=== PATIENT | male | born 1965 | race African-American/Black ===

== ENCOUNTER → 2019-09-11 08:57 | Outpatient (CLI) | payer BC, SELFPAY ==
[2019-09-12 12:30] LABS: Covid-19 Nasal PCR Sendout Lex Not Detected
== END ==
PROVIDERS: PCP Physician Assistant; Visit Provider Physician Assistant
DX: Z03.818 Encounter for observation for suspected exposure to other biological agents ruled out (principal)
CPT/HCPCS: U0004

== ENCOUNTER → 2020-05-19 17:58 | Outpatient (CLI) | payer BC, SELFPAY | PROVIDERS: PCP Emergency Medicine; Visit Provider Physician Assistant | DX: Z20.822 Contact with and (suspected) exposure to COVID-19 (principal) | CPT/HCPCS: U0003 ==

== ENCOUNTER 2020-11-25 12:12 | Emergency (ER) | payer BC, SELFPAY ==
[2020-11-25 12:26] VITALS: BP 120/89; PULSE 98; RESP 16; TEMP 36.8; O2SAT 99; BMI 24.9
--- NOTE | 2020-11-25 14:29 | HMH.EDUTC ---
[facility] [place] Impression: Viral syndrome, Exposure to COVID-19 virus Disposition: Home, Self-Care Condition on Discharge: Good Instructions: DI for Viral Syndrome, DI for COVID-19 (Suspected or Confirmed ), Preventing the Spread of Coronavirus Discharge Instructions Additional Instructions: Drink plenty of fluids. Take tylenol or ibuprofen for pain or fever. Take the medications as directed. Follow up with your regular doctor. GO TO THE ER FOR ANY WORSENING SYMPTOMS Quarantine until you know the results of your covid-19 test. If it is positive, the health department should call you and give you further instructions about your length of Quarantine and other thing. Prescriptions: Ondansetron [Zofran 4mg ODT] 4 mg PO Q8HP PRN #12 tab.rapdis PRN Reason: Nausea Transmission Status: Received by [facility] Benzonatate [Tessalon Perle 100mg Cap] 100 mg PO TIDP PRN #30 cap PRN Reason: Cough Transmission Status: Received by [facility] Referrals: Shravan Collier MD [Primary Care Provider] - Forms: Work/School Release Time of Disposition: 14:42 Medical Decision Making - Medical Records Medical records reviewed: No: I reviewed the patient's medical records. - Nasir Inquiry Pt receiving controlled substance: No Vital Signs: 11/25/20 12:26 11/25/20 14:32 11/25/20 14:51 Temperature 98.3 F 97.7 F 97.7 F Temperature Source Oral Oral Oral Pulse Rate 65 Pulse Rate [Left Radial] 98 H 65 Respiratory Rate 16 18 18 Blood Pressure 133/98 H Blood Pressure [Left Arm] 120/89 133/98 H Blood Pressure Mean [Left Arm] 99 109 Blood Pressure Source [Left Arm] Automatic Cuff Blood Pressure Position [Left Arm] Sitting 02 Sat by Pulse Oximetry 99 98 Oxygen Delivery Method Room Air Room Air [facility] [place] - General Stated complaint: covid test, covid symptoms Time Seen by Provider: 11/25/20 14:29 Mode of Arrival: Ambulatory Source of Information: Patient Limitations: No Limitations Description of Symptoms (Recalled from Triage Doc. by RN): pt reports body aches, chills for approx 2 days. Pt reports possible covid exposure at work - History of Present Illness Provider Complaint: He states that he has felt bad for the past 2 days. He has had body aches and joint aches. He has had chilling and nausea and diarrhea also. He denies sore throat. He denies any cough or congestion or shortness of breath. - Related Data Previous Rx's Medication Instructions Recorded amoxicillin 875 mg-potassium 1 tab PO BID 10 Days #20 tab 09/11/19 clavulanate 125 mg tablet Benzonatate [Tessalon Perle 100mg 100 mg PO TIDP PRN #30 cap 11/25/20 Cap] Ondansetron [Zofran 4mg ODT] 4 mg PO Q8HP PRN #12 tab.rapdis 11/25/20 Allergies Allergy/AdvReac Type Severity Reaction Status Date / Time No Known Allergies Allergy Unverified 09/11/19 08:29 [facility] History - Hepatitis A Screen Attestation statement:: This patient has been screened for Hepatitis A risk factors. I have reviewed the patient's past medical history: Yes Other Surgeries: Yes: Other Comment: Tumor removed - Social History Smoking Status: Current every day smoker Tobacco Type: cigarettes Alcohol Intake: current Alcohol Intake Frequency:: holidays/special occasions only Substance Use Type: denies use Occupational Status: unemployed Housing: house Household Members: family Family Hx:: Cancer ROS Obtained: Yes All systems reviewed & no additional complaints - Constitutional Constitutional: Reports system reviewed and no additional complaints, except as docu - Eyes Eyes: Reports system reviewed and no additional complaints, except as docu - ENT Ears, Nose, Mouth, and Throat: Reports system reviewed and no additional complaints, except as docu - Cardiovascular Cardiovascular: Reports system reviewed and no additional complaints, except as docu - Respiratory Respiratory: Reports system reviewed and
[2020-11-25 14:32] VITALS: BP 133/98; PULSE 65; RESP 18; TEMP 36.5; O2SAT 98; BMI 23.1
[2020-11-25 14:51] VITALS: BP 133/98; PULSE 65; RESP 18; TEMP 36.5; O2SAT 98
--- NOTE | 2020-11-25 17:39 | PC.NURSE ---
pt was notified for positive covid swab.
== END 2020-11-25 14:51 | disposition home or self-care (01) ==
PROVIDERS: Emergency Provider Nurse Practitioner Family; PCP Emergency Medicine
DX: U07.1 COVID-19 (principal); F17.210 Nicotine dependence, cigarettes, uncomplicated
CPT/HCPCS: 99202; G0463; U0003

== ENCOUNTER 2022-07-14 08:20 | Emergency (ER) | payer BC, SELFPAY ==
[2022-07-14 08:30] VITALS: BP 143/87; PULSE 133; RESP 22; TEMP 38.2; O2SAT 96; BMI 24.3
--- NOTE | 2022-07-14 08:41 | EXP.UTC ---
Discharge Plan Disposition Patient Disposition: Home, Self-Care Condition: Fair Prescriptions Prescriptions: New cefdinir 300 mg capsule 300 mg PO BID Qty: 20 0RF Referrals Follow up/Referrals: Shravan Collier MD [Primary Care Provider] - See instructions Activity Restrictions/Add. Instructions Additional Instructions/Restrictions: Make sure to Return immediately if any worsening of symptoms Take medication as prescribed *Increase fluids. Water not Soda or Tea *Start antibiotic immediately and be sure to take as ordered for the FULL length of time although you should start to see improvement over the next 48 hours *Be SURE to follow up anytime for new or worsening symptoms with your family doctor. AND in 48 hours for urine culture results with your family doctor, if you do not have a doctor then you may call back to the [facility] for urine culture results and further treatment. We do recommend that you choose and establish care with a Primary Care Physician. ?AND follow up with them ?in 10-14 days to repeat UA to ensure infection is resolved and blood no longer present *Be sure to let your PCP know that we sent urine cultures from the [facility] so they can follow up to ensure that you area the on the correct antibiotic Call your doctor office and make appointment for 48 hours (2 days from today) ?to follow up and get the results of your urine culture and further treatment Clinical Impressions Clinical Impression: Pyelonephritis Stand Alone Forms Stand Alone Forms: Work/School Release Instructions Patient Instructions: Kidney Infection, DI for Kidney Infection, Cefdinir Discharge ED Provider: Nuria Reed [facility] [place] H[place] General Stated complaint: possible bladder infection Mode of Arrival: Ambulatory Source of Information: Patient Limitations: No Limitations Time Seen by Provider: 07/14/22 08:41 Description of Symptoms (Recalled from Triage Doc. by RN): PATIENT C/O LOWER BACK PAIN, MURKY URINE, AND FEELING URGE TO URINATE FREQUENTLY SINCE MONDAY. HE REPORTS SYMPTOMS STARTED AFTER HE DRANK AN ENERGY DRINK, WHICH USUALLY CAUSES HIM TO HAVE AN INFECTION HEENT Symptoms (Recalled from RN notes): No Resp Symptoms (Recalled from RN notes): No Skin Symptoms (Recalled from RN notes): No MS Symptoms (Recalled from RN notes): No Functional Status (Recalled from RN notes): WNL History of Present Illness Provider Complaint: Patient states that he drank an energy drink earlier in the week and he typically gives him a UTI when he drinks them States that he has been having pain in his lower back that moves to the left side States that he has been having urinary frequency and urgency since Monday and today it was worse States that he wanted to come in and get something to help with the UTI Related Data Previous Rx's Medication Instructions Recorded cefdinir 300 mg capsule 300 mg PO BID #20 caps 07/14/22 Allergies Allergy/AdvReac Type Severity Reaction Status Date / Time No Known Allergies Allergy Verified 07/14/22 08:42 Worker's Comp Is this a Worker's Comp case?: No PFSH PFS Disclaimer: The information contained in this section may have been updated after the patient was seen, as this information can be updated by other users. Social History Smoking Status: Current every day smoker tobacco type: cigarettes alcohol intake: current substance use type: denies use current occupational status: unemployed Travel in the last 8 weeks: None household members: family housing: house ROS Obtained: Yes All systems reviewed & no additional complaints except as documented and Yes Systems reviewed as appropriate & no additional complaints except as documented Constitutional Constitutional: Reports system reviewed and no additional complaints, except as documented and Reports as per HPI ENT Ears, Nose, Mouth, and Throat: Reports system reviewed and no additional complaints, except as documented and Reports as per HPI C
[2022-07-14 08:43] LABS: Apearance,Urine Cloudy (Clear); Blood, Urine 3+ (Negative); Color,Urine Yellow (Yellow); Glucose,Urine (UA) Negative (Negative); Ketones,Urine TRACE (Negative); PH,Urine 5.5 (5.0-8.5); Protein,Urine 3+ (Negative); Specific Gravity, Urine >= 1.030 (1.005-1.030)
[2022-07-14 08:44] LABS: Bilirubin,Urine 1+ (Negative); UTC Leukocyte Esterase,Urine 1+ (Negative); UTC Nitrate,Urine Positive (Negative); Urobilinogen,Urine 1 EU/dl (0.2)
[2022-07-14 08:58] VITALS: BP 143/87; PULSE 133; RESP 22; TEMP 38.2; O2SAT 96
== END 2022-07-14 09:29 | disposition home or self-care (01) ==
PROVIDERS: Emergency Provider Nurse Practitioner; PCP Emergency Medicine
DX: N10 Acute pyelonephritis (principal); B96.29 Other Escherichia coli [E. coli] as the cause of diseases classified elsewhere; F17.210 Nicotine dependence, cigarettes, uncomplicated; M54.50 Low back pain, unspecified
CPT/HCPCS: 81003; 87086; 87088; 87186; 96372; 99212; 99214; 99215; G0463; J0696

== ENCOUNTER 2022-07-25 17:16 | Emergency (ER) | payer BC, SELFPAY ==
[2022-07-25 17:17] VITALS: BP 162/103; PULSE 81; RESP 17; TEMP 36.9; O2SAT 99; BMI 24.3
[2022-07-25 17:47] LABS: Microscopic, Urine URINE MICROSCOPIC (MICROSCOPIC)
[2022-07-25 17:59] LABS: Appearance,Urine SL CLOUDY (Clear); Bilirubin,Urine Negative (Negative); Blood, Urine 1+ (Negative); Color,Urine YELLOW (Yellow); Glucose,Urine (UA) Negative (Negative); Ketones,Urine Negative (Negative); Leukocyte Esterase,Urine 1+ (Negative); Nitrate,Urine POSITIVE (Negative); PH,Urine 6.5 (5.0-8.5); Protein,Urine 1+ (Negative); Urobilinogen,Urine 0.2 EU/dl (0.2)
[2022-07-25 18:26] LABS: Bacteria,Urine 3+ /lpf; Squamous Epithelial Cell,Urine Occasional #/hpf (0-5); WBC,Urine 20-50 #/hpf (0-3)
--- NOTE | 2022-07-25 18:26 | CT_ITS ---
PROCEDURE INFORMATION: Exam: CT Abdomen And Pelvis With Contrast Exam date and time: 07/25/2022 7:49 PM Age: 56 years old Clinical indication: Abdominal pain; Other: Pelvis prostrate pain; Additional info: Pelvic pain/prostatitis TECHNIQUE: Imaging protocol: Computed tomography of the abdomen and pelvis with contrast. Radiation optimization: All CT scans at this facility use at least one of these dose optimization techniques: automated exposure control; mA and/or kV adjustment per patient size (includes targeted exams where dose is matched to clinical indication); or iterative reconstruction. Contrast material: ISOVUE; Contrast volume: 75 ml; Contrast route: IV; REPORTING DATA: Count of CT and Cardiac NM exams in prior 12 months: This patient has received 0 known CTs and 0 known cardiac nuclear medicine studies in the 12 months prior to the current study. COMPARISON: ABDPELW/O CT ABD PELVIS W/O CONTRAST 01/16/2017 11:10 AM FINDINGS: Liver: Normal. No mass. Gallbladder and bile ducts: Normal. No calcified stones. No ductal dilation. Pancreas: Normal. No ductal dilation. Spleen: Normal. No splenomegaly. Adrenal glands: Normal. No mass. Kidneys and ureters: 3 mm nonobstructing calculus posterior aspect midpole left kidney. Stomach and bowel: Unremarkable. No obstruction. No mucosal thickening. Appendix: No evidence of appendicitis. Intraperitoneal space: Unremarkable. No free air. No significant fluid collection. Vasculature: Unremarkable. No abdominal aortic aneurysm. Lymph nodes: Unremarkable. No enlarged lymph nodes. Urinary bladder: Mild thickening of the bladder wall may reflect incomplete distension. Could not exclude changes of cystitis. Reproductive: Unremarkable as visualized. Bones/joints: Unremarkable. No acute fracture. Soft tissues: Slight indistinctness of the fascial planes between the prostate gland and base of the bladder. A subtle abnormality in this region could not be excluded. IMPRESSION: 1. 3 mm nonobstructing calculus posterior aspect midpole left kidney. 2. Mild thickening of the bladder wall may reflect incomplete distension. Could not exclude changes of cystitis. 3. Slight indistinctness of the fascial planes between the prostate gland and base of the bladder. A subtle abnormality in this region could not be excluded. Consider follow-up with magnetic resonance imaging of the pelvis without and with contrast.
--- NOTE | 2022-07-25 18:29 | HMH.EDUROGM ---
Discharge Plan Disposition Patient Disposition: Home, Self-Care Condition: Good Prescriptions Prescriptions: New ciprofloxacin HCl [Cipro] 500 mg tablet 500 mg PO BID Qty: 20 0RF No Action cefdinir 300 mg capsule 300 mg PO BID Qty: 20 0RF Referrals Follow up/Referrals: Shravan Collier MD [Primary Care Provider] - See instructions Isai Hermosillo MD [Referring] - See instructions Activity Restrictions/Add. Instructions Additional Instructions/Restrictions: Prostate is inflamed, you have UTI, I am referring to urologist Dr. Hermosillo. I am putting you on some ciprofloxacin for the next 2 weeks. And follow-up with the urologist and Dr. Collier your family doctor. Have your family doctor order an MRI of your pelvis. Clinical Impressions Clinical Impression: Acute prostatitis, Acute UTI (urinary tract infection) Instructions Patient Instructions: Prostatitis, DI for Urinary Tract Infection (UTI), DI for Urinary Retention in Men Discharge ED Provider: Anabel Dee [facility] HPI General Chief complaint: Urogenital-Male Stated complaint: poss kidney inf Time Seen by Provider: 07/25/22 18:01 Mode of Arrival: Ambulatory Source of Information: Patient Limitations: No Limitations Description of Symptoms (Recalled from ER Triage Doc. by RN): 56 M presents from home with his significant other at bedside for c/o painful urination and chills. He reports being seen here 1-2 weeks ago for a UTI. He finished all of his abx; however, is starting to have the symptoms again History of Present Illness HPI Narrative: Patient is a 56-year-old -[place] male who is here secondary to severe suprapubic pain right groin pain and back pain. Patient stated that she has been having pain off-and-on for the past 1 week. Patient had chills and fever. Patient was here at the urgent care last week and diagnosed with Cipro and has been taking ciprofloxacin 500 p.o. Patient stated that he has some clear penile discharge. He has sexually active 1 partner not using protection. Patient also complaining of some back pain. Patient stated that he has not had UTIs or kidney stones or kidney infections or prostatitis or enlarged prostate in the past. He has no upper respiratory symptoms, nausea. vomiting, diarrhea, or constipation. Patient has some dysuria that happened this morning. No urgency frequency or blood in the MD Complaint: dysuria Onset (ago): day(s) Duration: intermittent Location: right inguinal region, right flank and left flank Radiation: right inguinal region Severity: moderate Severity scale (1-10): 8 Quality: burning and stabbing Relieving factors: none Exacerbating factors: urination new medication Reports dysuria and fever Related Data Sexually active: Yes Previous Rx's Medication Instructions Recorded cefdinir 300 mg capsule 300 mg PO BID #20 caps 07/14/22 ciprofloxacin HCl 500 mg tablet 500 mg PO BID #20 tabs 07/25/22 (Cipro) Allergies Allergy/AdvReac Type Severity Reaction Status Date / Time No Known Allergies Allergy Verified 07/14/22 08:42 [facility] Disclaimer: The information contained in this section may have been updated after the patient was seen, as this information can be updated by other users. Social History Smoking Status: Current every day smoker tobacco type: cigarettes alcohol intake: current substance use type: denies use current occupational status: unemployed Travel in the last 8 weeks: None household members: family housing: house ROS Obtained: Yes All systems reviewed & no additional complaints except as documented Constitutional Constitutional: Reports chills and Reports fever(s) Gastrointestinal Gastrointestingal: Reports abdominal pain Genitourinary Male Genitourinary: Reports urinary frequency, Reports urinary hesitancy and Reports urinary urgency Physical Exam General General appearance: alert and in distress Head Head exam: atr
[2022-07-25 19:11] LABS: Procalcitonin 0.062 ng/mL (0.0-2.0)
[2022-07-25 19:20] LABS: Basophils # 0.1 K/mm3 (0-0.2); Basophils % 0.6 % (0.1-2.0); Eosinophils # 0.5 K/mm3 (0.0-0.4); Eosinophils % 5.7 % (0.1-12.0); Hematocrit 39.8 % (42.0-52.0); Hemoglobin 12.9 g/dL (14.1-18.0); Lymphocytes # 3.3 K/mm3 (0.7-4.5); Mean Corpuscular HGB Conc 32.5 g/dL (31.8-35.4); Mean Corpuscular Hemoglobin 29.8 pg (27.0-31.2); Mean Corpuscular Volume 91.7 fl (80-94); Mean Platelet Volume 7.6 fl (7.4-10.4); Monocytes # 0.5 K/mm3 (0.1-1.0); Monocytes % 5.7 % (1.7-9.3); Platelet Count 415 K/mm3 (142-424); Red Blood Count 4.34 M/mm3 (4.60-6.20); Red Cell Distribution Width 12.8 % (11.5-17.5); White Blood Count 8.2 K/mm3 (4.8-10.8)
[2022-07-25 19:22] LABS: Chloride 100 mmol/L (98-107); Potassium 4.1 mmoL/L (3.5-5.1); Sodium 138 mmol/L (136-145)
[2022-07-25 19:24] LABS: Blood Urea Nitrogen 20 mg/dl (9-20)
[2022-07-25 19:25] LABS: Alanine Aminotransferase 34 U/L (12-78); Albumin Level 4.4 g/dl (3.5-5.0); Albumin/Globulin Ratio 1.4 (1.1-1.8); Alkaline Phosphatase 61 U/L (38-126); Anion Gap 10.1 mEq/L (5-15); Aspartate Amino Transferase 35 U/L (17-59); Bilirubin,Total 0.7 mg/dl (0.2-1.3); Calcium 9.2 mg/dl (8.4-10.2); Carbon Dioxide 32 mmol/L (22.0-30.0); Creatinine Clearance Estimated 87 mL/min (50-200); Estimated Glomerular Filt Rate 57 ml/min (>60); GFR (African American) 69 ML/MIN (>60); Globulin 3.1 g/dL (1.3-3.2); Glucose 95 mg/dl (74-100); Lactic Acid 0.6 mmol/L (0.7-2.1); Total Protein,Serum 7.5 g/dl (6.3-8.2)
[2022-07-25 20:11] VITALS: BP 147/108; PULSE 71; TEMP 36.8; O2SAT 98
--- NOTE | 2022-07-25 20:35 | PC.NURSE ---
wanted to check status of ct read, called lisa Martinez and he stated the ct is being read at this time. Updated pt & visitor on this. Also began IV antibiotics and toradol IVP.
--- NOTE | 2022-07-25 20:45 | PC.NURSE ---
PHONE CALL TO RADIOLOGY, IMAGES ARE STILL BEING READ. INFORMED
[2022-07-25 22:03] VITALS: BP 139/87; PULSE 70; RESP 16; TEMP 36.9; O2SAT 98
== END 2022-07-25 22:05 | disposition home or self-care (01) ==
PROVIDERS: Emergency Provider Emergency Medicine; PCP Emergency Medicine
DX: N41.0 Acute prostatitis (principal); N39.0 Urinary tract infection, site not specified; F17.210 Nicotine dependence, cigarettes, uncomplicated
CPT/HCPCS: 74177; 80053; 81001; 83605; 84145; 85025; 87040; 87086; 87088; 87186; 96365; 96374; 99284; 99285; J2543; Q9967